=== PATIENT | male | born 1945 | race Hispanic/Latino ===

== ENCOUNTER → 2018-08-08 | Outpatient (CLI) | payer OTHER | END | disposition home or self-care (01) | LOC: RAH 10:00 | PROVIDERS: ATTEND Family Medicine | DX: R41.0 Disorientation, unspecified (principal) | CPT/HCPCS: 70450 ==

== ENCOUNTER → 2021-09-15 | Outpatient (CLI) | payer OTHER ==
[~2021-09-15] MED LIST: REGADENOSON 0.4 MG/5 ML PF SYG IVP SCH
== END | disposition home or self-care (01) ==
LOC: SHCH 08:21
PROVIDERS: ATTEND Internal Medicine Cardiovascular Disease
DX: I13.10 Hypertensive heart and chronic kidney disease without heart failure, with stage 1 through stage 4 chronic kidney disease, or unspecified chronic kidney disease (principal); N18.4 Chronic kidney disease, stage 4 (severe); I73.9 Peripheral vascular disease, unspecified; I65.23 Occlusion and stenosis of bilateral carotid arteries; E78.5 Hyperlipidemia, unspecified; Z95.5 Presence of coronary angioplasty implant and graft; Z95.1 Presence of aortocoronary bypass graft; Z79.02 Long term (current) use of antithrombotics/antiplatelets; Z79.899 Other long term (current) drug therapy
CPT/HCPCS: 78452; 96374; 93017; J2785; A9500 ×2

== ENCOUNTER → 2022-02-23 | Outpatient (CLI) | payer OTHER | END | disposition home or self-care (01) | LOC: SHCH 07:36 | PROVIDERS: ATTEND Internal Medicine Cardiovascular Disease | DX: N18.9 Chronic kidney disease, unspecified (principal); Q61.02 Congenital multiple renal cysts | CPT/HCPCS: 93975 ==

== ENCOUNTER → 2022-11-24 | Outpatient (CLI) | payer OTHER | END | disposition home or self-care (01) | LOC: SHCH 07:31 | PROVIDERS: ATTEND Internal Medicine Cardiovascular Disease | DX: N18.5 Chronic kidney disease, stage 5 (principal); Z95.828 Presence of other vascular implants and grafts; Z98.890 Other specified postprocedural states | CPT/HCPCS: 93975 ==